=== PATIENT | female | born 1965 | race Caucasian/White ===

== ENCOUNTER 2018-04-15 08:00 | Day surgery (SDC) | payer MEDICARE, MEDICAID ==
[~2018-04-15] VITALS: Ht 160 cm; Wt 49.5 kg
[~2018-04-15 08:00] MED LIST: SODIUM CHLORIDE 0.9% 1,000 ML IV ONE
[2018-04-15] MEDS ORDERED: FURO20 PO (08:40)
[2018-04-15] MEDS ORDERED: SPIR50 PO (08:40)
[2018-04-15] MEDS ORDERED: PRED5DRO25 OU (08:40)
[2018-04-15] MEDS ORDERED: FOLI1 PO (08:40)
[2018-04-15] MEDS ORDERED: SODIUM CHLORIDE 0.9% 1,000 ML IV ONE (08:54)
== END 2018-04-15 11:30 | disposition home or self-care (01) ==
LOC: SURGERY 08:00 → EDSTATUS 10:00 → SURGERY 11:30
PROVIDERS: ATTEND Specialist
DX: R14.0 Abdominal distension (gaseous) (principal); K74.60 Unspecified cirrhosis of liver; K76.6 Portal hypertension; Z94.7 Corneal transplant status; Z83.79 Family history of other diseases of the digestive system; Z87.891 Personal history of nicotine dependence
CPT/HCPCS: 76705; J7030

== ENCOUNTER 2018-04-27 12:28 | Day surgery (SDC) | payer MEDICARE, MEDICAID ==
[~2018-04-27] VITALS: Ht 157.5 cm; Wt 50.9 kg
[~2018-04-27 12:28] MED LIST changes: +FOLI1 PO; +FURO20 PO; +PRED5DRO25 OU; +SPIR50 PO
[2018-04-27] MEDS ORDERED: LIDOCAINE/PF 2% 5 ML VIAL IM ONE (12:29)
[2018-04-27] MEDS ORDERED: MIDAZOLAM HCL 2 MG/2 ML VIAL IVP ONE (12:29)
[2018-04-27] MEDS ORDERED: PROPOFOL 1% 20 ML VIAL IVP ONE (12:29)
[2018-04-27] MEDS ORDERED: SODIUM CHLORIDE 0.9% 1,000 ML IV ONE (12:30)
== END 2018-04-27 16:45 | disposition home or self-care (01) ==
LOC: SURGERY 12:28
PROVIDERS: ATTEND Student in an Organized Health Care Education/Training Program
DX: I85.00 Esophageal varices without bleeding (principal); K25.9 Gastric ulcer, unspecified as acute or chronic, without hemorrhage or perforation; K29.30 Chronic superficial gastritis without bleeding; K70.30 Alcoholic cirrhosis of liver without ascites; F17.210 Nicotine dependence, cigarettes, uncomplicated; Z72.89 Other problems related to lifestyle; Z98.890 Other specified postprocedural states; Z86.19 Personal history of other infectious and parasitic diseases
CPT/HCPCS: 43239; 88304; 88312; 88313; C1769; J2250; J2704; J3490; J7030